=== PATIENT | male | born 1955 | race Caucasian/White ===

== ENCOUNTER 2024-09-18 05:49 | Observation (INO) ==
[~2024-09-18 05:49] MED LIST: NS 0.45% 1000 ml BAG 1,000 ML IV SCH; Naloxone 0.4 mg VIAL 0.4 mg/ml 1 ml VIAL IV PRN; Ondansetron 4 mg VIAL 2 MG/ML 2 ml VIAL IV PRN; ROPIVACAINE 5 MG/ML 30 ML BTL (0.5%) ONE
[2024-09-18] MEDS: Buffered Lidocaine 1% SYRIN 1 ml INTRADERM ONE (06:12)
[2024-09-18] MEDS ORDERED: ceFAZolin 2 GM PREMIX 2 GM/50 ML BAG ONE (06:15)
[2024-09-18] MEDS ORDERED: Tranexamic Acid 1 GM/100ML BAG 2,000 MG/200 ML BAG IV ONE (06:15)
[2024-09-18] MEDS: Lactated Ringers 1000 ml BAG 1,000 ML IV SCH ×2 (06:23→11:30)
[2024-09-18 06:27] LABS: Rapid COVID-19 Molecular Undetected (Undetected)
[2024-09-18] MEDS ORDERED: Midazolam 2 mg/2 ml VIAL 1 mg/ml 2 ml VIAL (2 mg) ONE (07:03)
[2024-09-18] MEDS ORDERED: Phenylephrine 40 mcg/mL 10mL (400mcg) SYRINGE ONE (07:45)
[2024-09-18] MEDS ORDERED: KETAMINE HCL 10 MG/ML 20 ml VIAL (200 MG) ONE (07:55)
[2024-09-18] MEDS ORDERED: Glycopyrrolate IV 0.2 MG/ML 1 ML VIAL ONE (07:56)
[2024-09-18] MEDS ORDERED: fentaNYL 100 mcg/2 ml 50 MCG/ML VIAL ONE ×2 (08:06→10:32)
[2024-09-18] MEDS ORDERED: Propofol 10 MG/ML 20 ML BTL ONE (08:55)
[2024-09-18] MEDS ORDERED: Ondansetron ODT 4 mg TAB 4 MG TAB PO PRN (09:48)
[2024-09-18] MEDS ORDERED: Calcium Carb (TUMS) 500 mg CHEW TAB PO PRN (09:48)
[2024-09-18] MEDS ORDERED: Ondansetron 4 mg VIAL 2 MG/ML 2 ml VIAL IV PRN (09:48)
[2024-09-18] MEDS ORDERED: Morphine 2 MG/ML SYRINGE IV PRN (09:48)
[2024-09-18] MEDS ORDERED: Lactulose 30 ml UDC PO PRN (09:48)
[2024-09-18] MEDS ORDERED: Magnesium Hydroxide LIQ 30 ML UDC PO PRN (09:48)
[2024-09-18] MEDS: fentaNYL 100 mcg/2 ml 50 MCG/ML VIAL IV PRN (10:34)
[2024-09-18] MEDS: Acetaminophen IV 1 GM/100ML 1,000 MG/100 ML BAG IV ONE (12:45)
[2024-09-18] MEDS: ceFAZolin 2 GM PREMIX 2 GM/50 ML BAG IV SCH (16:08)
[2024-09-18] MEDS: Magnesium Hydroxide LIQ 30 ML UDC PO SCH (22:15)
[2024-09-19] MEDS: Vitamin THERAPEUTIC TAB PO SCH (08:03)
[2024-09-19 08:49] LABS: Hematocrit 28.2 % (38-53); Hemoglobin 9.5 g/dL (13.2-16.3); Mean Platelet Volume 7.7 fL (7.5-11.2); Platelet Count 173 10^3/uL (150-450)
[2024-09-19 09:17] LABS: Calcium 8.5 mg/dL (8.6-10.3); Creatinine, Serum 0.66 mg/dL (0.67-1.17); Potassium 4.1 mmol/L (3.5-5.0); eGFR CKD-EPI 101.5 (>60)
[2024-09-19 09:54] VITALS: BP 142/78
== END 2024-09-19 12:40 | disposition home or self-care (01) ==
LOC: SSU 05:49 → OR 05:49
PROVIDERS: ADMIT Orthopaedic Surgery Adult Reconstructive Orthopaedic Surgery; ATTEND Orthopaedic Surgery Adult Reconstructive Orthopaedic Surgery